=== PATIENT | male | born 1970 | race Hispanic/Latino ===

== ENCOUNTER 2017-09-03 09:32 | Emergency (ER) | payer OTHER ==
[~2017-09-03] VITALS: Ht 162.6 cm; Wt 65.0 kg
[~2017-09-03 09:32] MED LIST: CIPRO500 MG OR; NO CURRENT MEDS; ULTRAM50 MG OR
[2017-09-03 10:16] LABS: URINE BILIRUBIN - DIPSTICK NEGATIVE (NEGATIVE); URINE BLOOD DIPSTICK LARGE (NEGATIVE); URINE COLOR YELLOW; URINE GLUCOSE - DIPSTICK 100 mg/dL (NEGATIVE); URINE KETONE NEGATIVE (NEGATIVE); URINE LEUK ESTERASE NEGATIVE (NEGATIVE); URINE NITRITE - DIPSTICK NEGATIVE (Negative); URINE PH 5.5 (4.5-8.0); URINE PROTEIN - DIPSTICK 100 mg/dL (NEG-TRACE); URINE SPECIFIC GRAVITY 1.025; URINE UROBILINOGEN - DIPSTICK 0.2 E.U./dL (0.2)
[2017-09-03 10:18] LABS: URINE CLARITY HAZY
[2017-09-03 10:19] LABS: HEMATOCRIT 46.1 % (39.0-50.0); HEMOGLOBIN 15.2 g/dl (14.0-18.0); IMMATURE GRANULOCYTES 4.2 % (0.0-1.0); MEAN CORPUSCULAR HGB 29.3 pG CALC (26.0-32.0); NEUT# 9.44 thou/uL (1.82-7.42); RED BLOOD COUNT 5.18 mill/uL (4.70-6.10); RED CELL DISTRI WIDTH 13.6 % (11.5-15.5)
[2017-09-03 10:20] LABS: URINE EPITHELIAL CELLS FEW EPI/hpf (0-FEW); URINE HYALINE CAST FEW lpf (NONE-RARE); URINE MUCUS MANY hpf (NONE-FEW)
[2017-09-03 10:21] LABS: BARBITURATES NEGATIVE (NEGATIVE); COCAINE NEGATIVE (NEGATIVE); METHADONE NEGATIVE (NEGATIVE); OXCYCODONE NEGATIVE (NEGATIVE); TETRAHYDROCANNABIONOL POSITIVE (NEGATIVE); TRICYLIC ANTIDEPRESSANTS NEGATIVE (NEGATIVE)
[2017-09-03 11:16] LABS: PROTHROMBIN TIME 10.7 SECONDS (9.0-12.5)
[2017-09-03 11:19] LABS: ALKALINE PHOSPHATASE 75 u/l (38-126); BILIRUBIN, TOTAL 0.4 mg/dL (0.0-1.4); BUN 10 mg/dL (9-20); BUN/CREATININE RATIO 10 (12-20 (CALC)); CHLORIDE 104 mmol/l (95-108); GFR > 60 ML/MIN (>=60 (CALC)); GFR FOR AFR.AMER. > 60 ML/MIN (>=60 (CALC)); LIPASE 81 u/l (23-300); POTASSIUM 3.8 mmol/l (3.5-5.1); SGOT/AST 33 u/l (17-59); SGPT/ALT 38 u/l (21-72); SODIUM 136 mmol/l (137-146); TOTAL PROTEIN 6.4 g/dL (6.3-8.2)
[2017-09-03 11:21] LABS: ANION GAP 24 (6-22 (CALC)); CARBON DIOXIDE 12 mmol/l (22-30); ETHYL ALCOHOL 0 mg/dl (0-30)
[2017-09-03] MEDS ORDERED: ATORVASTATIN CA40 MG PO (11:38)
[2017-09-03] MEDS ORDERED: LISINOPRIL20 MG PO (11:38)
[2017-09-03] MEDS ORDERED: VITAMIN D31000 UNI1 PO (11:39)
[2017-09-03 11:45] LABS: MYOGLOBIN 2992 ng/mL (0 - 121)
[2017-09-03 12:45] VITALS: BP 123/72
== END 2017-09-03 12:45 | disposition short-term general hospital (02) | DRG 101 ==
LOC: ED 09:32
PROVIDERS: Emergency Medicine
PROC: 0T9B70Z Drainage of Bladder with Drainage Device, Via Natural or Artificial Opening (ICD-10-PCS; principal; 2017-09-03)
DX: R56.9 Unspecified convulsions (principal); E87.2 Acidosis; I10 Essential (primary) hypertension; E78.00 Pure hypercholesterolemia, unspecified; F17.210 Nicotine dependence, cigarettes, uncomplicated; Z87.820 Personal history of traumatic brain injury

== ENCOUNTER → 2018-05-27 | Outpatient (REF) | payer OTHER ==
[~2018-05-27] MED LIST changes: +ATORVASTATIN CA40 MG PO; +LISINOPRIL20 MG PO; +VITAMIN D31000 UNI1 PO
== END | disposition home or self-care (01) ==
LOC: LAB 14:39
PROVIDERS: ATTEND Physician Assistant
DX: D64.9 Anemia, unspecified (principal)